=== PATIENT | female | born 1960 | race Caucasian/White ===

== ENCOUNTER 2019-04-16 10:35 | Day surgery (SDC) | payer OTHER ==
[~2019-04-16] VITALS: Ht 170.2 cm; Wt 128.4 kg
[~2019-04-16 10:35] MED LIST: ATEN50TA PO; CLON0.1T PO; HYDR-531 PO; LISI-707 PO; MORP1TAB12 PO; NAPR500T31 PO; POTA10TA51 PO; SIMV-8 PO
[2019-04-16] MEDS ORDERED: ANGIOMAX 250 MG VIAL IV ONE (14:08)
[2019-04-16] MEDS ORDERED: fentaNYL CITRATE 100 MCG/2 ML VL ONE (14:08)
[2019-04-16] MEDS ORDERED: HEPARIN SODIUM (PORCINE) 5000 UNITS/ML 1ML VIAL ONE (14:08)
[2019-04-16] MEDS ORDERED: VERAPAMIL 2.5MG/ML INJ 2ML VIAL IV ONE ×2 (14:08→15:05)
[2019-04-16] MEDS ORDERED: MIDAZOLAM HCL 1MG/1ML-2 ML VIAL ONE (14:09)
[2019-04-16] MEDS ORDERED: SODIUM CHL 0.9% 0 ML ONE (14:09)
[2019-04-16] MEDS ORDERED: LIDOCAINE 2%HCL (LOCAL ANESTH.) INJ 20ML MDV ONE (14:09)
[2019-04-16] MEDS ORDERED: IOHEXOL 350 MG/ML 100ML IJ ONE (14:10)
== END 2019-04-16 17:00 | disposition home or self-care (01) ==
LOC: CATH 10:35
PROVIDERS: ATTEND Internal Medicine Cardiovascular Disease
DX: R94.39 Abnormal result of other cardiovascular function study (principal); I25.10 Atherosclerotic heart disease of native coronary artery without angina pectoris; I11.9 Hypertensive heart disease without heart failure; E55.9 Vitamin D deficiency, unspecified; E66.01 Morbid (severe) obesity due to excess calories; E78.2 Mixed hyperlipidemia; M19.90 Unspecified osteoarthritis, unspecified site; E78.00 Pure hypercholesterolemia, unspecified; Z79.899 Other long term (current) drug therapy; Z68.41 Body mass index [BMI] 40.0-44.9, adult; Z90.710 Acquired absence of both cervix and uterus; Z98.890 Other specified postprocedural states; Z88.2 Allergy status to sulfonamides
CPT/HCPCS: 93458; C1769; C1887; C1894; J1644; J2250; J3010; Q9967; 99152; 99153